=== PATIENT | female | born 1985 | race Caucasian/White ===

== ENCOUNTER 2016-04-22 13:47 | Emergency (ER) | payer MEDICAID ==
[~2016-04-22] VITALS: Ht 160 cm; Wt 50.0 kg
[~2016-04-22 13:47] MED LIST: AMOX500T PO; ZOFR4TAB3 SL
[2016-04-22 13:49] VITALS: BP 155/100; PULSE 87; RESP 20; TEMP 98; O2SAT 97
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
== END 2016-04-22 16:03 | disposition home or self-care (01) ==
LOC: NEPB 13:47
DX: S40.012A Contusion of left shoulder, initial encounter (principal); Y00.XXXA Assault by blunt object, initial encounter
CPT/HCPCS: 73010; 99283

== ENCOUNTER 2016-05-07 16:45 | Emergency (ER) | payer MEDICAID ==
[~2016-05-07] VITALS: Ht 160 cm; Wt 53.0 kg
[2016-05-07 16:47] VITALS: BP 175/114; PULSE 130; RESP 24; TEMP 98.8; O2SAT 97
[2016-05-07] MEDS ORDERED: LORazepam 2 MG/ML VIAL IV PUSH ONE (17:30)
[2016-05-07] MEDS ORDERED: SODIUM CHLOR 0.9% 1000 ML INJ 1,000 ML IV ONE (17:30)
[2016-05-07 17:46] LABS: BASOPHIL # 0.1 TH/MM3 (0-0.2); BASOPHIL % 0.6 % (0.0-2.0); EOSINOPHIL # 0.1 TH/MM3 (0-0.4); EOSINOPHIL % 0.7 % (0.0-4.0); HEMO FLAGS DIFF FINAL; LYMPH % 18.5 % (9.0-44.0); LYMPHOCYTE # 1.8 TH/MM3 (1.0-4.8); MEAN CORPUSCULAR HEMOGLOBIN 26.6 PG (27.0-34.0); MEAN CORPUSCULAR HGB CONC 33.2 % (32.0-36.0); MONO % 7.5 % (0.0-8.0); NEUT % 72.7 % (16.0-70.0); PLATELET COUNT 240 TH/MM3 (150-450); RED BLOOD COUNT 4.75 MIL/MM3 (4.00-5.30); RED CELL DISTRIBUTION WIDTH 15.8 % (11.6-17.2); WHITE BLOOD COUNT 9.6 TH/MM3 (4.0-11.0)
[2016-05-07 18:07] LABS: ANION GAP 8 MEQ/L (5-15); AST (GOT) 10 U/L (15-37); BLOOD UREA NITROGEN 11 MG/DL (7-18); CHLORIDE 104 MEQ/L (98-107); GLOMERULAR FILTRATION RATE 72 ML/MIN (>89); POTASSIUM 3.9 MEQ/L (3.5-5.1); SODIUM (NA) 138 MEQ/L (136-145)
[2016-05-07 18:18] LABS: ALKALINE PHOSPHATASE 84 U/L (45-117); ALT (GPT) 14 U/L (10-53); TOTAL BILIRUBIN ADULT 0.4 MG/DL (0.2-1.0)
--- NOTE | 2016-05-07 19:16 | PD ---
HPI Chief Complaint: Anxiety Time Seen by Provider: 17:17 Travel History International Travel<30 days: No Contact w/Intl Traveler<30days: No Traveled to known affect area: No History of Present Illness HPI 22 year-old woman presents emergent arm worsening anxiety symptoms. States she' s had really bad symptoms past year or so, worse today. She was seen by psychiatrist when she was young but seems somewhat distressing in the medical system. She states that she has been trying to get help to see a doctor but was never given to see anybody. She otherwise has been feeling generally well and healthy. History Past Medical History Medical History: Denies Significant Hx LMP: 04/20/16 : 2 Para: 2 Social History Alcohol Use: No Tobacco Use: Yes Allergies-Medications (Allergen,Severity, Reaction): Coded Allergies: Risperdal (Verified Allergy, Severe, SOB, 05/07/16) Tramadol (Verified Allergy, Severe, Anaphylaxis, 05/07/16) Reported Meds & Prescriptions Reported Meds & Active Scripts Active No Active Prescriptions or Reported Medications Review of Systems Except as stated in HPI: all other systems reviewed are Neg Physical Exam Narrative GENERAL: Well-appearing 30 year-old woman, no acute distress. SKIN: Warm and dry. HEAD: Atraumatic. Normocephalic. CARDIOVASCULAR: Regular rate and rhythm. No murmur appreciated. RESPIRATORY: No accessory muscle use. Clear to auscultation. Breath sounds equal bilaterally. GASTROINTESTINAL: Abdomen soft, non-tender, nondistended. Hepatic and splenic margins not palpable. MUSCULOSKELETAL: No obvious deformities. No clubbing. No cyanosis. No edema. NEUROLOGICAL: Awake and alert. No obvious cranial nerve deficits. Motor grossly within normal limits. Normal speech. PSYCHIATRIC: Anxious. Data Data Last Documented VS Vital Signs Date Time Temp Pulse Resp B/P Pulse Ox O2 Delivery O2 Flow Rate FiO2 05/07/16 16:47 98.8 130 24 175/114 97 Room Air Orders Complete Blood Count With Diff (05/07/16 17:18) Comprehensive Metabolic Panel (05/07/16 17:18) Thyroid Stimulating Hormone (05/07/16 17:18) Iv Access Insert/Monitor (05/07/16 17:18) Sodium Chlor 0.9% 1000 Ml Inj (Ns 1000 M (05/07/16 17:30) Lorazepam Inj (Ativan Inj) (05/07/16 17:30) Labs Laboratory Tests Test 05/07/16 17:12 White Blood Count 9.6 TH/MM3 Red Blood Count 4.75 MIL/MM3 Hemoglobin 12.6 GM/DL Hematocrit 38.0 % Mean Corpuscular Volume 80.0 FL Mean Corpuscular Hemoglobin 26.6 PG Mean Corpuscular Hemoglobin 33.2 % Concent Red Cell Distribution Width 15.8 % Platelet Count 240 TH/MM3 Mean Platelet Volume 8.5 FL Neutrophils (%) (Auto) 72.7 % Lymphocytes (%) (Auto) 18.5 % Monocytes (%) (Auto) 7.5 % Eosinophils (%) (Auto) 0.7 % Basophils (%) (Auto) 0.6 % Neutrophils # (Auto) 7.0 TH/MM3 Lymphocytes # (Auto) 1.8 TH/MM3 Monocytes # (Auto) 0.7 TH/MM3 Eosinophils # (Auto) 0.1 TH/MM3 Basophils # (Auto) 0.1 TH/MM3 CBC Comment DIFF FINAL Differential Comment Sodium Level 138 MEQ/L Potassium Level 3.9 MEQ/L Chloride Level 104 MEQ/L Carbon Dioxide Level 26.0 MEQ/L Anion Gap 8 MEQ/L Blood Urea Nitrogen 11 MG/DL Creatinine 0.93 MG/DL Estimat Glomerular Filtration 72 ML/MIN Rate Random Glucose 91 MG/DL Calcium Level 8.5 MG/DL Total Bilirubin 0.4 MG/DL Aspartate Amino Transf 10 U/L (AST/SGOT) Alanine Aminotransferase 14 U/L (ALT/SGPT) Alkaline Phosphatase 84 U/L Total Protein 7.6 GM/DL Albumin 3.9 GM/DL Thyroid Stimulating Hormone 0.528 uIU/ML 3rd Gen [facility] Medical Decision Making Medical Screen Exam Complete: Yes Emergency Medical Condition: Yes Differential Diagnosis Anxiety, depression, substance abuse, other Narrative Course Medical decision making INITIAL: 22 year-old woman presents to the emergency department with anxiety and panic symptoms, ongoing for the past year, worse today. Needs outpatient referral. Improved after Ativan. Denies SI or HI. Diagnosis Primary Impression: Anxiety disorder Additional Instructions: Follow-up with the resources provided. Return to the emergency department for any new or worsening symptoms. Scripts No Active Prescriptions or Reported Meds Disposition: 01 DISCHARGE HOME Condition: Stable Kostas Tsai MD May 07, 2016 19:16
== END 2016-05-07 20:32 | disposition home or self-care (01) ==
LOC: NEPC 16:45
DX: F41.9 Anxiety disorder, unspecified (principal)
CPT/HCPCS: 80053; 84443; 85025; 96374; 99283; J2060; J7030

== ENCOUNTER 2016-10-17 18:12 | Emergency (ER) | payer MEDICAID ==
[~2016-10-17] VITALS: Ht 160 cm; Wt 60.0 kg
[2016-10-17 18:18] VITALS: BP 153/99; PULSE 92; RESP 20; TEMP 97.9; O2SAT 100
--- NOTE | 2016-10-17 18:28 | PD ---
Physical Exam Date Seen by Provider: Oct 17, 2016 Time Seen by Provider: 18:26 Narrative 30 yo female here for evaluation of abdominal pain. has had a hernia for years but now having more pain. She believes she is having vaginal bleeding and this might be a miscarrage. She does not know if she was but possiblity. Bleeding is different from menses per patient. Pain is 6/10. Vitals are stable in triage. Awaiting bed placement. Data Data Last Documented VS Vital Signs Date Time Temp Pulse Resp B/P Pulse Ox O2 Delivery O2 Flow Rate FiO2 10/17/16 18:18 97.9 92 20 153/99 100 Room Air [facility] Medical Record Reviewed: Yes Supervised Visit with RACHEL: No Scripts No Active Prescriptions or Reported Meds Ulises Leon Oct 17, 2016 18:28
--- NOTE | 2016-10-17 19:33 | PD ---
HPI Chief Complaint: [employer] Problem/Complaint Time Seen by Provider: 19:20 Travel History International Travel<30 days: No Contact w/Intl Traveler<30days: No Traveled to known affect area: No History of Present Illness HPI The patient was seen and examined in the presence of the nurse. This patient complains of vaginal bleeding. It is not time for her menstrual period which is usually regular. She's had 3 days of bleeding. She describes it as heavy. She is not having syncope or fatigue. She is not on blood thinners. She is not sure if she is but doesn't think so. No alleviating factors. Symptoms severity is mild to moderate. PFSH Past Medical History Anxiety: Yes Cancer: No Diabetes: No Diminished Hearing: No Psychiatric: No Seizures: No Thyroid Disease: No Ulcer: No ?: Not : 2 Para: 2 Past Surgical History Section: Yes (X1) Cholecystectomy: Yes (1995) Other Surgery: No Social History Alcohol Use: No Tobacco Use: Yes Substance Use: Yes (marijuana) Allergies-Medications (Allergen,Severity, Reaction): Coded Allergies: Risperdal (Verified Allergy, Severe, SOB, 10/17/16) Tramadol (Verified Allergy, Severe, Anaphylaxis, 10/17/16) Reported Meds & Prescriptions Reported Meds & Active Scripts Active No Active Prescriptions or Reported Medications Review of Systems General / Constitutional: No: Fever Eyes: No: Visual changes HENT: No: Headaches Cardiovascular: No: Chest Pain or Discomfort Respiratory: No: Shortness of Breath Gastrointestinal: No: Abdominal Pain Genitourinary: Positive: Vaginal Bleeding, No: Dysuria Musculoskeletal: No: Pain Skin: No Rash Neurologic: No: Weakness Psychiatric: No: Depression Endocrine: No: Polydipsia Hematologic/Lymphatic: No: Easy Bruising Physical Exam Narrative GENERAL: Well-nourished, well-developed patient in no apparent distress. SKIN: Focused skin assessment reveals no rash and nodules. Skin is Warm and dry. HEAD: Atraumatic. Normocephalic. EYES: Pupils equal and round. No scleral icterus. No injection or drainage. ENT: No nasal bleeding or discharge. Mucous membranes pink and moist. NECK: Trachea midline. No JVD. CARDIOVASCULAR: Regular rate and rhythm. No murmur appreciated. RESPIRATORY: No accessory muscle use. Clear to auscultation. Breath sounds equal bilaterally. GASTROINTESTINAL: Abdomen soft, non-tender, nondistended. Hepatic and splenic margins not palpable. MUSCULOSKELETAL: No obvious deformities. No clubbing. No cyanosis. No edema. NEUROLOGICAL: Awake and alert. No obvious cranial nerve deficits. Motor grossly within normal limits. Normal speech. PSYCHIATRIC: Appropriate mood and affect; insight and judgment normal. Pelvic: Data Data Last Documented VS Vital Signs Date Time Temp Pulse Resp B/P Pulse Ox O2 Delivery O2 Flow Rate FiO2 10/17/16 18:18 97.9 92 20 153/99 100 Room Air Orders Iv Access Insert/Monitor (10/17/16 19:30) Complete Blood Count With Diff (10/17/16 19:30) Labs Laboratory Tests Test 10/17/16 19:35 White Blood Count 10.4 TH/MM3 Red Blood Count 4.53 MIL/MM3 Hemoglobin 13.4 GM/DL Hematocrit 39.5 % Mean Corpuscular Volume 87.3 FL Mean Corpuscular Hemoglobin 29.6 PG Mean Corpuscular Hemoglobin 33.8 % Concent Red Cell Distribution Width 14.4 % Platelet Count 213 TH/MM3 Mean Platelet Volume 8.8 FL Neutrophils (%) (Auto) 61.1 % Lymphocytes (%) (Auto) 27.2 % Monocytes (%) (Auto) 8.3 % Eosinophils (%) (Auto) 2.5 % Basophils (%) (Auto) 0.9 % Neutrophils # (Auto) 6.4 TH/MM3 Lymphocytes # (Auto) 2.8 TH/MM3 Monocytes # (Auto) 0.9 TH/MM3 Eosinophils # (Auto) 0.3 TH/MM3 Basophils # (Auto) 0.1 TH/MM3 CBC Comment DIFF FINAL Differential Comment MDM Medical Decision Making Medical Screen Exam Complete: Yes Emergency Medical Condition: Yes Medical Record Reviewed: Yes Differential Diagnosis Ectopic , threatened , dysfunctional uterine bleeding Narrative Course I have reviewed the patient's electronic medical record. 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
[2016-10-17 19:57] LABS: AUTOMATED NEUTROPHIL # 6.4 TH/MM3 (1.8-7.7); BASOPHIL # 0.1 TH/MM3 (0-0.2); BASOPHIL % 0.9 % (0.0-2.0); EOSINOPHIL # 0.3 TH/MM3 (0-0.4); EOSINOPHIL % 2.5 % (0.0-4.0); HEMATOCRIT 39.5 % (35.0-46.0); HEMO FLAGS DIFF FINAL; LYMPH % 27.2 % (9.0-44.0); LYMPHOCYTE # 2.8 TH/MM3 (1.0-4.8); MEAN CELL VOLUME 87.3 FL (80.0-100.0); MEAN CORPUSCULAR HEMOGLOBIN 29.6 PG (27.0-34.0); MEAN CORPUSCULAR HGB CONC 33.8 % (32.0-36.0); MONO % 8.3 % (0.0-8.0); NEUT % 61.1 % (16.0-70.0); PLATELET COUNT 213 TH/MM3 (150-450); RED BLOOD COUNT 4.53 MIL/MM3 (4.00-5.30); RED CELL DISTRIBUTION WIDTH 14.4 % (11.6-17.2); WHITE BLOOD COUNT 10.4 TH/MM3 (4.0-11.0)
== END 2016-10-17 20:45 | disposition home or self-care (01) ==
LOC: NEPD 18:12
DX: N93.9 Abnormal uterine and vaginal bleeding, unspecified (principal); F41.9 Anxiety disorder, unspecified; Z72.0 Tobacco use; Z88.5 Allergy status to narcotic agent; Z88.8 Allergy status to other drugs, medicaments and biological substances
CPT/HCPCS: 85025; 99283

== ENCOUNTER 2016-12-07 23:25 | Emergency (ER) | payer MEDICAID ==
[~2016-12-07] VITALS: Ht 160 cm; Wt 48.0 kg
[2016-12-07 23:28] VITALS: BP 158/100; PULSE 84; RESP 16; TEMP 97.7; O2SAT 100
--- NOTE | 2016-12-08 00:35 | PD ---
HPI Chief Complaint: Pain: Acute or Chronic Time Seen by Provider: 00:16 Travel History International Travel<30 days: No Contact w/Intl Traveler<30days: No Traveled to known affect area: No History of Present Illness HPI 31-year-old female came to the emergency room with history of groin pain. She has history of hernia and was seen in [facility] couple of days ago. Says she's been taking her hydrocodone but the pain is still there. She was on her cell phone when I went to see her. Didn't appear to be in any distress. Vital signs as stable. She said that she was supposed to follow up with the surgeon was name was given to her by the emergency room there but they wanted her to be referred by a primary care otherwise we'll see her. Currently patient is waiting to be seen by primary care on the . Meanwhile the pain is worse and that's why she is here. She has had multiple visits in this emergency room for various pain-related conditions. PFSH Past Medical History Narrative Medical List of her past medical, surgical, social and family history as reviewed from the nursing note. Anxiety: Yes Cancer: No Diabetes: No Diminished Hearing: No Psychiatric: No Seizures: No Thyroid Disease: No Ulcer: No ?: Not LMP: 11/14/16 : 2 Para: 2 Past Surgical History Section: Yes (X1) Cholecystectomy: Yes (1995...PT DENIES) Tonsillectomy: Yes Other Surgery: No Social History Alcohol Use: No Tobacco Use: Yes (4 CIGS PER DAY) Substance Use: Yes (marijuana) Allergies-Medications (Allergen,Severity, Reaction): Coded Allergies: risperidone (Unverified Allergy, Severe, SOB, 12/07/16) tramadol (Unverified Allergy, Severe, Anaphylaxis, 12/07/16) Comments List of her allergies reviewed from the nursing note. Reported Meds & Prescriptions Reported Meds & Active Scripts Active Miralax Powder (Polyethylene Glycol 3350 Powder) 17 Gm Powd 17 Gm PO DAILY Mix and dissolve one measuring cap-ful (17 grams) in water or juice. Narrative Medication List of her home medications were from the nursing note. Review of Systems Except as stated in HPI: all other systems reviewed are Neg Physical Exam Narrative GENERAL: Awake, alert, no obvious distress SKIN: Focused skin assessment warm/dry. HEAD: Atraumatic. Normocephalic. EYES: Pupils equal and round. No scleral icterus. No injection or drainage. ENT: No nasal bleeding or discharge. Mucous membranes pink and moist. NECK: Trachea midline. No JVD. CARDIOVASCULAR: Regular rate and rhythm. No murmur appreciated. RESPIRATORY: No accessory muscle use. Clear to auscultation. Breath sounds equal bilaterally. GASTROINTESTINAL: Abdomen soft, non-tender, nondistended. Hepatic and splenic margins not palpable. Right inguinal hernia MUSCULOSKELETAL: No obvious deformities. No clubbing. No cyanosis. No edema. NEUROLOGICAL: Awake and alert. No obvious cranial nerve deficits. Motor grossly within normal limits. Normal speech. PSYCHIATRIC: Appropriate mood and affect; insight and judgment normal. Data Data Last Documented VS Orders Orders Ketorolac Inj (Toradol Inj) (12/08/16 00:45) [facility] Medical Decision Making Medical Screen Exam Complete: Yes Emergency Medical Condition: Yes Medical Record Reviewed: Yes Differential Diagnosis Inguinal hernia Narrative Course 12:46 AM patient would be given a shot of Toradol. I've asked her to follow up with the general surgeon who is on-call for us. Patient does not have any history of vomiting. Vital signs are stable. She did not appear to be in any significant discomfort. I'm comfortable discharging her home. Procedures EKG Prior to Arrival: No Diagnosis Primary Impression: Hernia Referrals: Selwyn Coleman MD 3 days Additional Instructions: Please call the surgeon whose name and number been given to you on Saturday to get an appointment for a hernia. Take the medication as per the prescription direction. Med/Other Pt SpecificInfo: Prescription(s) given Scripts Polyethylene Glycol 3350 Powder (Miralax Powder) 17 Gm Powd 17 GM PO DAILY for Constipation, #1 CAN 0 Refills Mix and dissolve one measuring cap-ful (17 grams) in water or juice. Prov: Anival Rg MD 12/08/16 Disposition: 01 DISCHARGE HOME Condition: Stable Anival Rg MD Dec 08, 2016 00:35
[2016-12-08] MEDS ORDERED: MIRA3350 PO (00:43)
[2016-12-08] MEDS ORDERED: KETOROLAC TROMETHAMINE 60 MG/2 ML (IM) VIAL IM ONE (00:45)
== END 2016-12-08 01:07 | disposition home or self-care (01) ==
LOC: NEPE 23:25
DX: K46.9 Unspecified abdominal hernia without obstruction or gangrene (principal); F41.9 Anxiety disorder, unspecified
CPT/HCPCS: 96372; 99284; J1885